=== PATIENT | female | born 1955 | race Caucasian/White ===

== ENCOUNTER 2019-03-20 16:23 | Inpatient (IN) ==
[2019-03-20] MEDS ORDERED: ONDANSETRON 4 MG/2 ML VIAL IVP ONE (16:35)
[2019-03-20] MEDS ORDERED: KETOROLAC 15 MG/1 ML VIAL IVP ONE (16:35)
[2019-03-20] MEDS ORDERED: IPRATROPIUM/ALBUTEROL SULFATE 3 ML NEB NEB ONE ×2 (16:35→16:39)
[2019-03-20] MEDS ORDERED: Sodium Chloride 0.9% 1,000 ML PRIMARY IV ONE (16:35)
[2019-03-20 16:46] LABS: VENOUS PH 7.48 (7.32-7.42)
[2019-03-20] MEDS ORDERED: DEXAMETHASONE PF 10 MG/1 ML VIAL IVP ONE (16:50)
[2019-03-20 17:10] LABS: Hematocrit [HCT] 46.7 % (37.0-47.0); MEAN CORPUSCULAR HGB CONC 34.3 g/dL (33-37); MEAN CORPUSCULAR VOLUME 97 FL (81-99); MEAN PLATELET VOLUME 6.6 FL (7.4-12.2)
[2019-03-20 17:19] LABS: BLOOD UREA NITROGEN 8 mg/dL (7-22); BUN/CREATININE RATIO 8.88 (6-20); SERUM ALBUMIN 4.4 g/dL (3.5-4.8)
[2019-03-20 17:22] LABS: BAND NEUTROPHILS % 2 % (0-10); BASOPHILS % (MANUAL) 1 % (0-1); EOSINOPHILS % (MANUAL) 16 % (0-8); MONOCYTES % (MANUAL) 0 % (0-12); NEUTROPHILS % (MANUAL) 60 % (50-80); PLATELET MORPHOLOGY COMMENT NORMAL MORPHOLOGY (NORM); RBC MORPHOLOGY COMMENT NORMAL MORPHOLOGY (NORM); WBC MORPHOLOGY COMMENT NORMAL MORPHOLOGY (NORM)
[2019-03-20 17:31] LABS: BILIRUBIN,URINE SMALL (NEG); CLARITY,URINE CLEAR (CLEAR); COLOR,URINE YELLOW (Y); GLUCOSE, URINE (UA) NEGATIVE (NEG); OCCULT BLOOD,URINE MODERATE (NEG); PROTEIN,URINE TRACE mg/dl (NEG); UROBILINOGEN,URINE 0.2 EU/dL (0.2)
[2019-03-20 17:39] LABS: URINE SAMPLE TYPE CLEAN CATCH URINE
[2019-03-20 17:40] LABS: RBC,URINE 0-3 /hpf; SQUAMOUS EPITHELIAL CELL,UR FEW
[2019-03-20] MEDS ORDERED: Prometh/Codeine Liquid 10/6.25 MG/5 ML ORAL.SYRIN PO ONE (17:41)
[2019-03-20] MEDS ORDERED: SODIUM CL 0.9% FOR INH 3 ML NEB NEB ONE ×2 (18:05→18:13)
[2019-03-20 18:14] LABS: Erythrocyte Sediment Rate 10 MM/HR (0-20)
[2019-03-20] MEDS ORDERED: ALBUTEROL SULFATE 2.5 MG/3 ML NEB PRN (19:37)
[2019-03-20] MEDS ORDERED: LIDOCAINE W/ SODIUM BICARB 0.5 ML SYR SUBD PRN (19:37)
[2019-03-20] MEDS ORDERED: ONDANSETRON 4 MG/2 ML VIAL IVP PRN (19:37)
[2019-03-20] MEDS ORDERED: DOCUSATE 100 MG CAPSULE PO PRN (19:37)
[2019-03-20] MEDS ORDERED: FLUTICASONE HFA 110 MCG - 12 GM INHALER INH ONE (19:37)
[2019-03-20] MEDS ORDERED: CALCIUM CARBONATE 500 MG (TUMS) CHEWABLE TABLET PO PRN (19:37)
[2019-03-20] MEDS: PANTOPRAZOLE IV 40 MG VIAL IVP SCH (19:58)
[2019-03-20] MEDS: methylPREDNISolone 125 MG/2 ML VIAL IVP SCH (19:58)
[2019-03-20] MEDS: Montelukast Tab 10 MG TAB PO SCH (20:05)
[2019-03-20] MEDS: IPRATROPIUM/ALBUTEROL SULFATE 3 ML NEB NEB SCH (21:26)
[2019-03-21] MEDS: IPRATROPIUM/ALBUTEROL SULFATE 3 ML NEB NEB SCH ×4 (00:09→19:14)
[2019-03-21] MEDS: methylPREDNISolone 125 MG/2 ML VIAL IVP SCH ×4 (01:49→20:04)
[2019-03-21] MEDS: LEVOTHYROXINE 50 MCG TABLET PO SCH (04:37)
[2019-03-21 05:20] LABS: Hematocrit [HCT] 44.4 % (37.0-47.0); Hemoglobin [HGB] 15.1 g/dL (12.0-16.0); MEAN CORPUSCULAR VOLUME 97 FL (81-99); MEAN PLATELET VOLUME 6.8 FL (7.4-12.2); NEUTROPHILS % (AUTO) 90.2 % (50-80); RED BLOOD COUNT 4.58 10^6/uL (4.20-5.40)
[2019-03-21 05:21] LABS: BASOPHILS # (AUTO) 0.02 10*3/UL; BASOPHILS % (AUTO) 0.2 % (0-1); EOSINOPHILS # (AUTO) 0.07 10*3/UL; EOSINOPHILS % (AUTO) 0.9 % (0-8); LYMPHOCYTES # (AUTO) 0.59 10*3/uL; MONOCYTES # (AUTO) 0.08 10*3/UL (0.3-0.8); MONOCYTES % (AUTO) 1.1 % (5-15); NEUTROPHILS # (AUTO) 6.95 10*3/UL; PLATELET MORPHOLOGY COMMENT NORMAL MORPHOLOGY (NORM); RBC MORPHOLOGY COMMENT NORMAL MORPHOLOGY (NORM); WBC MORPHOLOGY COMMENT NORMAL MORPHOLOGY (NORM)
[2019-03-21] MEDS: FLUTICASONE HFA 110 MCG - 12 GM INHALER INH SCH ×2 (06:40→19:19)
[2019-03-21] MEDS: HYDROCHLOROTHIAZIDE 12.5 MG CAPSULE PO SCH (06:51)
[2019-03-21] MEDS ORDERED: OMEPRAZOLE 20 MG CAPSULE PO SCH (07:00)
[2019-03-21] MEDS: PANTOPRAZOLE IV 40 MG VIAL IVP SCH ×2 (08:03→20:04)
[2019-03-21] MEDS: AZITHROMYCIN 250 MG TABLET PO SCH (08:04)
[2019-03-21] MEDS: ACETAMINOPHEN 325 MG TABLET PO PRN (17:20)
[2019-03-21] MEDS: Prometh/Codeine Liquid 10/6.25 MG/5 ML ORAL.SYRIN PO PRN (20:09)
[2019-03-21] MEDS: Montelukast Tab 10 MG TAB PO SCH (20:09)
[2019-03-22] MEDS: IPRATROPIUM/ALBUTEROL SULFATE 3 ML NEB NEB SCH ×4 (00:36→18:54)
[2019-03-22] MEDS: Prometh/Codeine Liquid 10/6.25 MG/5 ML ORAL.SYRIN PO PRN ×2 (00:54→15:13)
[2019-03-22] MEDS: methylPREDNISolone 125 MG/2 ML VIAL IVP SCH ×4 (02:00→20:44)
[2019-03-22] MEDS: LEVOTHYROXINE 50 MCG TABLET PO SCH (05:01)
[2019-03-22] MEDS: FLUTICASONE HFA 110 MCG - 12 GM INHALER INH SCH ×2 (06:25→19:00)
[2019-03-22] MEDS: HYDROCHLOROTHIAZIDE 12.5 MG CAPSULE PO SCH (06:32)
[2019-03-22] MEDS: AZITHROMYCIN 250 MG TABLET PO SCH (08:11)
[2019-03-22] MEDS: PANTOPRAZOLE IV 40 MG VIAL IVP SCH ×2 (08:12→20:44)
[2019-03-22] MEDS ORDERED: AZITHROMYCIN 250 MG TABLET PO SCH (09:00)
[2019-03-22] MEDS: ACETAMINOPHEN 325 MG TABLET PO PRN (15:12)
[2019-03-22] MEDS: Montelukast Tab 10 MG TAB PO SCH (20:45)
[2019-03-23] MEDS: IPRATROPIUM/ALBUTEROL SULFATE 3 ML NEB NEB SCH ×3 (00:56→12:51)
[2019-03-23] MEDS: methylPREDNISolone 125 MG/2 ML VIAL IVP SCH ×3 (01:36→13:05)
[2019-03-23] MEDS: Prometh/Codeine Liquid 10/6.25 MG/5 ML ORAL.SYRIN PO PRN ×2 (01:36→07:49)
[2019-03-23] MEDS: LEVOTHYROXINE 50 MCG TABLET PO SCH (05:28)
[2019-03-23] MEDS: FLUTICASONE HFA 110 MCG - 12 GM INHALER INH SCH (06:46)
[2019-03-23 06:47] VITALS: RESP 20
[2019-03-23] MEDS: PANTOPRAZOLE IV 40 MG VIAL IVP SCH (07:42)
[2019-03-23] MEDS: HYDROCHLOROTHIAZIDE 12.5 MG CAPSULE PO SCH (07:42)
[2019-03-23] MEDS: AZITHROMYCIN 250 MG TABLET PO SCH (09:17)
[2019-03-23 10:44] VITALS: BP 131/57; TEMP 97.3
[2019-03-23 12:52] VITALS: O2SAT 94
[2019-03-23] MEDS ORDERED: Prometh/Codeine Liquid 10/6.25 MG/5 ML ORAL.SYRIN PO SCH (13:00)
== END 2019-03-23 13:22 | disposition home or self-care (01) | DRG 198 ==
LOC: MED/SURG 16:23 → ER 16:23 → MED/SURG 19:32
PROVIDERS: ADMIT Family Medicine; ATTEND Family Medicine